=== PATIENT | male | born 1950 | race Asian ===

== ENCOUNTER → 2022-02-26 | Outpatient (CLI) | payer MEDICARE | END | disposition home or self-care (01) | LOC: RADMN 09:29 | PROVIDERS: ATTEND Physical Medicine & Rehabilitation Spinal Cord Injury Medicine | DX: M19.041 Primary osteoarthritis, right hand (principal); M19.042 Primary osteoarthritis, left hand; M19.071 Primary osteoarthritis, right ankle and foot; M19.072 Primary osteoarthritis, left ankle and foot; M77.32 Calcaneal spur, left foot; M77.31 Calcaneal spur, right foot; M76.61 Achilles tendinitis, right leg; M19.011 Primary osteoarthritis, right shoulder; I70.0 Atherosclerosis of aorta; Q25.46 Tortuous aortic arch; M47.816 Spondylosis without myelopathy or radiculopathy, lumbar region; M47.812 Spondylosis without myelopathy or radiculopathy, cervical region; S52.611S Displaced fracture of right ulna styloid process, sequela; X58.XXXS Exposure to other specified factors, sequela | CPT/HCPCS: 72040; 72100; 73030-TC; 73130-TC; 73562-TC; 73610-TC ==